=== PATIENT | female | born 1930 | race Caucasian/White ===

== ENCOUNTER 2019-02-17 12:42 | Inpatient (IN) ==
[2019-02-17] MEDS ORDERED: ACETAMINOPHEN 325 MG TABLET PO PRN (12:51)
[2019-02-17] MEDS ORDERED: ONDANSETRON 4 MG/2 ML VIAL IV PRN (12:51)
[2019-02-17] MEDS ORDERED: DOCUSATE SODIUM 100 MG CAPSULE PO PRN (12:51)
[2019-02-17] MEDS ORDERED: SODIUM CHLORIDE 0.9% 1,000 ML IV PRN (12:57)
[2019-02-17 15:06] LABS: Albumin 3.3 G/DL (3.4-5.0); Bilirubin,Total 0.4 MG/DL (0.2-1.0); Calcium 9.1 MG/DL (8.5-10.1); Osmolality,Calculated 289.1 MOS/KG (273-304); Total Protein 6.2 G/DL (6.4-8.3)
[2019-02-17] MEDS ORDERED: ESCITALOPRAM 10 MG TABLET PO SCH (23:56)
[2019-02-18] MEDS: FERROUS SULFATE 325 MG TABLET PO SCH ×2 (00:25→08:30)
[2019-02-18] MEDS: clonazePAM 0.5 MG TABLET PO SCH ×2 (00:25→21:00)
[2019-02-18] MEDS: ROSUVASTATIN 10 MG TABLET PO SCH ×2 (00:26→21:00)
[2019-02-18 05:41] LABS: Basophils % 0.5 % (0.0-0.8); Eosinophils # 0.1 10*3/uL (0.0-0.87); Eosinophils % 1.2 % (0.00-10.9); Hematocrit 25.5 VOL% (35.7-47.0); Hemoglobin 8.1 GM/DL (12.0-16.0); Immature Granulocytes % 0.2 %; Immature Granulocytes Absolute 0.01 #; Lymphocytes # 1.9 10*3/uL (1.4-4.0); Mean Corpuscular HGB Conc 31.8 GM/DL (32-36); Mean Corpuscular Volume 93.4 FL (87-102); Mean Platelet Volume 10.1 FL (9.6-12.0); Monocytes % 9.9 % (1.7-12.7); Neutrophils % 55.2 % (38.7-73.9); Platelet Count 173 T/CUMM (130-400); Red Blood Count 2.73 MC/CUMM (3.8-5.5); Red Cell Distribution Width 16.3 % (9.3-17.3); White Blood Count 5.7 T/CUMM (4-12)
[2019-02-18] MEDS ORDERED: SODIUM CHLORIDE 0.9% 1,000 ML IV PRN (06:40)
[2019-02-18] MEDS: PANTOPRAZOLE 40 MG TABLET PO SCH (08:30)
[2019-02-18] MEDS ORDERED: ESCITALOPRAM 10 MG TABLET PO SCH (10:45)
[2019-02-18] MEDS: SPIRONOLACTONE 25 MG TABLET PO SCH (12:27)
[2019-02-18] MEDS: LOSARTAN 50 MG TABLET PO SCH ×2 (12:27→21:00)
[2019-02-18] MEDS: IRON SUCROSE 200 MG in SODIUM CHLORIDE 0.9% 100 ML IV SCH (15:50)
[2019-02-18] MEDS ORDERED: NON-FORMULARY MEDICATION (Rosuvastatin [Crestor] 5 MG) PO SCH (21:00)
[2019-02-18] MEDS: ESCITALOPRAM 10 MG TABLET PO SCH (21:00)
[2019-02-19 05:25] LABS: Basophils % 0.9 % (0.0-0.8); Eosinophils # 0.2 10*3/uL (0.0-0.87); Eosinophils % 3.4 % (0.00-10.9); Hematocrit 28.1 VOL% (35.7-47.0); Hemoglobin 9.1 GM/DL (12.0-16.0); Immature Granulocytes % 0.4 %; Immature Granulocytes Absolute 0.02 #; Lymphocytes # 1.2 10*3/uL (1.4-4.0); Lymphocytes % 24.8 % (21.3-54.2); Mean Corpuscular HGB Conc 32.4 GM/DL (32-36); Mean Corpuscular Volume 92.1 FL (87-102); Mean Platelet Volume 9.9 FL (9.6-12.0); Monocytes % 9.2 % (1.7-12.7); Neutrophils % 61.3 % (38.7-73.9); Platelet Count 156 T/CUMM (130-400); Red Blood Count 3.05 MC/CUMM (3.8-5.5); Red Cell Distribution Width 15.9 % (9.3-17.3); White Blood Count 4.7 T/CUMM (4-12)
[2019-02-19] MEDS: SPIRONOLACTONE 25 MG TABLET PO SCH (09:16)
[2019-02-19] MEDS: PANTOPRAZOLE 40 MG TABLET PO SCH (09:17)
[2019-02-19] MEDS: LOSARTAN 50 MG TABLET PO SCH ×2 (09:17→22:15)
[2019-02-19] MEDS: IRON SUCROSE 200 MG in SODIUM CHLORIDE 0.9% 100 ML IV SCH (09:18)
[2019-02-19] MEDS ORDERED: BISACODYL 5 MG TABLET PO ONE (10:00)
[2019-02-19] MEDS ORDERED: POLYETHYLENE GLYCOL POWDER 255 GM BOTTLE PO ONE (12:00)
[2019-02-19] MEDS ORDERED: MAGNESIUM CITRATE 300 ML BOTTLE PO ONE (21:00)
[2019-02-19] MEDS: clonazePAM 0.5 MG TABLET PO SCH (22:13)
[2019-02-19] MEDS: ROSUVASTATIN 10 MG TABLET PO SCH (22:14)
[2019-02-19] MEDS: ESCITALOPRAM 10 MG TABLET PO SCH (22:14)
[2019-02-20 05:37] LABS: PT Patient Result 11.1 SECS
[2019-02-20] MEDS ORDERED: LACTATED RINGERS 1,000 ML IV SCH (08:00)
[2019-02-20] MEDS ORDERED: LIDOCAINE 2% 5 ML VIAL ONE (09:00)
[2019-02-20] MEDS ORDERED: PROPOFOL 200 MG/20 ML VIAL IV ONE (09:00)
[2019-02-20] MEDS: SPIRONOLACTONE 25 MG TABLET PO SCH (11:52)
[2019-02-20] MEDS: IRON SUCROSE 200 MG in SODIUM CHLORIDE 0.9% 100 ML IV SCH (11:53)
[2019-02-20] MEDS: PANTOPRAZOLE 40 MG TABLET PO SCH (11:53)
[2019-02-20] MEDS: LOSARTAN 50 MG TABLET PO SCH (11:53)
[2019-02-20 13:02] VITALS: BP 162/71
[2019-02-20] MEDS ORDERED: metroNIDAZOLE 250 MG TABLET PO SCH (15:00)
== END 2019-02-20 13:55 | disposition home or self-care (01) | DRG 813 ==
LOC: N.5E 13:16
PROVIDERS: ADMIT Family Medicine; ATTEND Family Medicine